=== PATIENT | male | born 1975 | race Caucasian/White ===

== ENCOUNTER 2018-07-09 11:40 | Day surgery (SDC) | payer BC ==
[~2018-07-09 11:40] MED LIST: Lactated Ringers 1,000 ML IV SCH
--- NOTE | 2018-07-09 12:33 | PCM.PREANE ---
Preanesthetic Assessment - Anesthesia/Transfusion/Family Hx Anesthesia History: No Prior Anesthesia Family History of Anesthesia Reaction: No Transfusion History: No Prior Transfusion(s) - Review of Systems General: No Symptoms Pulmonary: No Symptoms Cardiovascular: No Symptoms Neurological: No Symptoms Other: Reports: None - Physical Assessment NPO Status Date: 07/08/18 O2 Sat by Pulse Oximetry: 96 Respiratory Rate: 16 Vital Signs: Last Vital Signs Temp 97.0 F 07/09/18 11:58 Pulse 82 07/09/18 11:58 Resp 16 07/09/18 11:58 BP 146/90 H 07/09/18 11:58 Pulse Ox 96 07/09/18 11:58 Height: 5 ft 10 in Weight: 96.615 kg ASA Class: 2 Mental Status: Alert & Oriented x3 Airway Class: Mallampati = 2 Dentition: Reports: Normal Dentition ROM/Head Extension: Full Lungs: Clear to Auscultation, Normal Respiratory Effort Cardiovascular: Regular Rate, Regular Rhythm - Allergies Allergies/Adverse Reactions: Allergies Allergy/AdvReac Type Severity Reaction Status Date / Time No Known Allergies Allergy Verified 07/07/18 12:20 - Blood Blood Available: No - Anesthesia Plan Pre-Op Medication Ordered: None - Acknowledgements Anesthesia Type Planned: MAC Pt an Appropriate Candidate for the Planned Anesthesia: Yes Alternatives and Risks of Anesthesia Discussed w Pt/Guardian: Yes Pt/Guardian Understands and Agrees with Anesthesia Plan: Yes Additional Comments: PMH: htn, gerd, HLD PLAN: mac/tiva PreAnesthesia Questionnaire HEENT History: Reports: Other (See Below) Other HEENT History: wears glasses/contacts Cardiovascular History: Reports: High Cholesterol, Hypertension Other Cardiovascular History: Patient is not on medications, he is being monitored. Gastrointestinal History: Reports: GERD Neurological History: Reports: Other (See Below) Other Neuro History: hx of [place] Palsy - SUBSTANCE USE Smoking Status *Q: Former Smoker Tobacco Use Within Last Twelve Months: No Recreational Drug Use History: No - HOME MEDS Home Medications: Home Meds Pantoprazole [ProTONIX] 40 mg PO QAM 01/01/16 [History] Lisinopril 20 mg PO DAILY 07/07/18 [History] Rosuvastatin Calcium 10 mg PO DAILY 07/07/18 [History] - CURRENT (IN HOUSE) MEDS Current Meds: Current Medications Lactated Ringer's (Ringers, Lactated) 1,000 mls @ 125 mls/hr IV ASDIRECTED [facility] Last Admin: 07/09/18 12:03 Dose: 125 mls/hr
[2018-07-09] MEDS ORDERED: Propofol 200 MG/20 ML SDV ONE (13:50)
[2018-07-09] MEDS ORDERED: fentaNYL 100 MCG/2 ML SDV ONE (13:50)
[2018-07-09] MEDS ORDERED: Midazolam 1 MG/ML 2 ML SDV ONE (14:01)
--- NOTE | 2018-07-09 14:24 | PCM.OPNOTE ---
- General Post-Op/Procedure Note Date of Surgery/Procedure: 07/09/18 Operative Procedure(s): Esophagogastroduodenoscopy with biopsy Pre Op Diagnosis: Abdominal bloating. Weight loss. Early satiety. Post-Op Diagnosis: Mild gastritis. Hiatal hernia with erosive distal esophagitis. Anesthesia Technique: MAC (ASA II) Primary Surgeon: Eric Price Condition: Good Free Text/Narrative:: DICTATION [id number] CPT CODE 25270
[2018-07-09] MEDS ORDERED: Lactated Ringers 1,000 ML IV SCH (14:30)
--- NOTE | 2018-07-09 14:40 | PCM.POSTAN ---
POST ANESTHESIA ASSESSMENT - MENTAL STATUS Mental Status: Alert, Oriented - RESPIRATORY Respiratory Status: Respiratory Rate WNL, Airway Patent, O2 Saturation Stable - CARDIOVASCULAR CV Status: Pulse Rate WNL, Blood Pressure Stable - GASTROINTESTINAL GI Status: No Symptoms - POST OP HYDRATION Hydration Status: Adequate & Stable - OBSERVATIONS Free Text/Narrative:: The patient tolerated the procedure well. There were no apparent anesthetic complications at this time. Discharge per criteria.
[2018-07-09 14:55] VITALS: BP 115/79
--- NOTE | 2018-07-09 15:16 | PCM48HPAN ---
Post Anesthesia Note - EVALUATION WITHIN 48HRS OF ANESTHETIC Vital Signs in Normal Range: Yes Patient Participated in Evaluation: Yes Respiratory Function Stable: Yes Airway Patent: Yes Cardiovascular Function Stable: Yes Hydration Status Stable: Yes Pain Control Satisfactory: Yes Nausea and Vomiting Control Satisfactory: Yes Mental Status Recovered: Yes Resp Rate: 14
--- NOTE | 2018-07-09 15:31 | OR ---
SURGEON: Eric Price M.D. DATE OF PROCEDURE: 07/09/2018 OPERATION PERFORMED: Esophagogastroduodenoscopy with biopsy. PRIMARY SURGEON: Eric Price MD. ANESTHESIA: MAC. [place] [employer] CLASSIFICATION: II. PREOPERATIVE DIAGNOSES: 1. Longstanding gastroesophageal reflux disease with heartburn. 2. Early satiety. 3. Unexplained weight loss. POSTOPERATIVE DIAGNOSES: 1. Gastritis. 2. Hiatal hernia with acute esophagitis. DESCRIPTION OF PROCEDURE: The patient was taken to the endoscopy room and positioned on the endoscopy table in the left lateral decubitus position. Time-out was called for appropriate identification of the patient and procedure. Monitored anesthesia care was provided. A bite-block was placed between the patient's teeth. The gastroscope was inserted through the bite-block and advanced without difficulty through the esophagus and stomach into the duodenum, where examination was carried out in a retrograde fashion. The duodenum shows no acute inflammatory changes or ulcerations. Stomach does show mild chronic gastritis. No acute ulcerations or erosions were noted. The gastroscope was retroflexed to visualize the proximal stomach. The patient does have a hiatal hernia that can be seen from below, but more easily seen from above. He does have significant reflux symptoms and did show erosive esophagitis. With narrow-band imaging, I did not see any changes suggestive of a Sahni esophagus. The proximal and mid esophagus showed no acute lesions. No erosions were noted. The vocal cords were briefly visualized as the scope was withdrawn. There are noted to move symmetrically. The gastroscope was then removed with the patient having tolerated the procedure well. He was then taken to the recovery room in stable condition. HIRA / MANUEL /[id number]
== END 2018-07-09 15:20 | disposition home or self-care (01) ==
LOC: MW.SDS 11:40
PROVIDERS: ATTEND Surgery
DX: K29.50 Unspecified chronic gastritis without bleeding (principal); K22.10 Ulcer of esophagus without bleeding; K44.9 Diaphragmatic hernia without obstruction or gangrene; K21.9 Gastro-esophageal reflux disease without esophagitis; I10 Essential (primary) hypertension; E78.5 Hyperlipidemia, unspecified; R63.4 Abnormal weight loss; Z68.30 Body mass index [BMI] 30.0-30.9, adult; Z87.891 Personal history of nicotine dependence; Z79.899 Other long term (current) drug therapy
CPT/HCPCS: 43239; J2704; J3010; J7120; J2001

== ENCOUNTER 2019-06-27 19:05 | Observation (INO) | payer BC ==
[2019-06-27] MEDS ORDERED: Aspirin 81 MG Tab.Chew PO ONE (19:21)
[2019-06-27] MEDS ORDERED: Sodium Chloride 0.9% 1,000 ML IV ONE ×2 (19:21→20:38)
[2019-06-27] MEDS ORDERED: Sodium Chloride 0.9% 10 ML Syringe FLUSH PRN (19:21)
[2019-06-27] MEDS ORDERED: Sodium Chloride 0.9% 2.5 ML Syringe FLUSH PRN (19:21)
--- NOTE | 2019-06-27 19:22 | EDM.PDOC ---
ED HPI GENERAL MEDICAL PROBLEM - General Chief Complaint: Chest Pain Stated Complaint: CHEST PAIN Time Seen by Provider: 06/27/19 19:14 - History of Present Illness INITIAL COMMENTS - FREE TEXT/NARRATIVE: HISTORY AND PHYSICAL: History of present illness: Patient is a 44-year-old male who follows with Dr. Reilly in our family practice clinic who has a history of pretension acid reflux and elevated cholesterol for which he takes medications and presents with complaints of mid chest diffuse chest pressure that started yesterday afternoon. He says that there was no sudden onset but it was gradually increasing and he had it when he went to sleep last night but he slept the whole night without issues. When he woke up this morning it was still present and as the day progressed it seemed to get worse. He says it is worse when he bends over but he is not short of breath he has no abdominal pain no nausea no leg pain or swelling and no diaphoresis. He did not take anything specifically for the discomfort. He describes it as a pressure and aching and it is diffuse over his lower sternum but does not localize right or left. He has no recent trauma and he does smoke cigarettes and socially drinks alcohol but he has no drug use. The patient does have a significant family history of a father who had stents at the age of 55 but this patient has never had any cardiac work-up or stress test. He tells me that it is not worse with walking or activity but more with bending over and certain movements. It does not radiate. He has never had this before and it is not similar to his acid reflux discomfort. He does not have any abdominal pain vomiting or diarrhea and no upper respiratory symptoms or flulike symptoms. The patient does admit that he does drink a lot of caffeinated products at rest he says he is feeling the pressure and discomfort and he rates it as a 5/10. The patient does work at a desk job all day Review of systems: As per history of present illness and below otherwise all systems reviewed and negative. Past medical history: As per history of present illness and as reviewed below otherwise noncontributory. Surgical history: As per history of present illness and as reviewed below otherwise noncontributory. Social history: No reported history of drug or alcohol abuse. Family history: As per history of present illness and as reviewed below otherwise noncontributory. Physical exam: General: Well-developed well-nourished overweight man who is nontoxic and moves easily in the ED. When I asked him to sit up for a lung exam he said that that made the discomfort worse. HEENT: Atraumatic, normocephalic, pupils reactive, negative for conjunctival pallor or scleral icterus, mucous membranes moist, throat clear, neck supple, nontender, trachea midline. Lungs: Clear to auscultation, breath sounds equal bilaterally, chest nontender. No wheezing stridor or work of breathing Heart: S1S2, regular, negative for clicks, rubs, or JVD. Abdomen: Soft, nondistended, nontender. Negative for masses or hepatosplenomegaly. Negative for costovertebral tenderness. Pelvis: Stable nontender. Genitourinary: Deferred. Rectal: Deferred. Extremities: Atraumatic, negative for cords or calf pain. Neurovascular unremarkable. No pedal edema or leg asymmetry Neuro: Awake, alert, oriented. Cranial nerves II through XII unremarkable. Cerebellum unremarkable. Motor and sensory unremarkable throughout. Exam nonfocal. Diagnostics: EKG chest x-ray CBC CMP INR troponin UA with reflex CTA of the chest Therapeutics: IV O2 monitor IV fluids aspirin sublingual nitro, NTP Toradol Ativan After 3 sublingual nitros the pain has not changed and is still a 5/10. The patient is somewhat anxious does have a history of anxiety so we will give him some Nitropaste Toradol and Ativan and continue with our work-up. Patient and family at bedside are aware of all results and are agreeable for observation admission. I discussed this case with Dr. Olivares who is in agreement. Impression: Chest pain Definitive disposition and diagnosis as appropriate pending reevaluation and review of above. Chest Pain Score (Numeric/FACES): 5 - Related Data Allergies Allergy/AdvReac Type Severity Reaction Status Date / Time No Known Allergies Allergy Verified 06/27/19 19:09 Home Meds: Home Meds Pantoprazole [ProTONIX] 40 mg PO QAM 01/01/16 [History] Lisinopril 20 mg PO DAILY 07/07/18 [History] Rosuvastatin Calcium 10 mg PO DAILY 07/07/18 [History] Sucralfate 1 gm PO QIDACANDBED 30 Days #120 ml 07/09/18 [Rx] Past Medical History HEENT History: Reports: Other (See Below) Other HEENT History: wears glasses/contacts Cardiovascular History: Reports: High Cholesterol, Hypertension Other Cardiovascular History: Patient is not on medications, he is being monitored. Gastrointestinal History: Reports: GERD Neurological History: Reports: Other (See Below) Other Neuro History: hx of [place] Palsy - Infectious Disease History Infectious Disease History: Reports: None Social & Family History - Family History Family Medical History: Noncontributory - Tobacco Use Smoking Status *Q: Current Every Day Smoker Years of Tobacco use: 10 Packs/Tins Daily: 1 - Recreational Drug Use Recreational Drug Use: No ED ROS GENERAL - Review of Systems Review Of Systems: Comprehensive ROS is negative, except as noted in HPI. ED EXAM, GENERAL - Physical Exam Exam: See Below (See dictation) Course - Vital Signs Last Recorded V/S: Last Vital Signs Temp 36.2 C 06/27/19 19:09 Pulse 82 06/27/19 20:43 Resp 14 06/27/19 20:43 BP 121/75 06/27/19 20:43 Pulse Ox 96 06/27/19 20:43 - Orders/Labs/Meds Orders: Active Orders 24 hr Category Date Time Status Patient Status [ADT] Stat ADT 06/27/19 22:33 Active Cardiac Monitoring [RC] . DIRECTED Care 06/27/19 19:20 Active EKG Documentation Completion [RC] STAT Care 06/27/19 19:20 Active Oxygen Therapy, ED [RC] ASDIRECTED Care 06/27/19 19:20 Active Pulse Oximetry [RC] ASDIRECTED Care 06/27/19 19:20 Active UA RFX SHARON AND CULT IF INDIC [URIN] Stat Lab 06/27/19 19:21 Ordered Sodium Chloride 0.9% [Saline Flush] Med 06/27/19 19:21 Active 10 ml FLUSH ASDIRECTED PRN Sodium Chloride 0.9% [Saline Flush] Med 06/27/19 19:21 Active 2.5 ml FLUSH ASDIRECTED PRN Saline Lock Insert [OM.PC] Stat Oth 06/27/19 19:20 Ordered Medication Orders Sodium Chloride (Saline Flush) 10 ml FLUSH ASDIRECTED PRN PRN Reason: Keep Vein Open Sodium Chloride (Saline Flush) 2.5 ml FLUSH ASDIRECTED PRN PRN Reason: Keep Vein Open Labs: Laboratory Tests 06/27/19 06/27/19 06/27/19 Range/Units 19:26 19:26 19:26 WBC 9.56 (4.0-11.0) K/uL RBC 4.63 (4.50-5.90) M/uL Hgb 14.4 (13.0-17.0) g/dL Hct 41.2 (38.0-50.0) % MCV 89.0 (80.0-98.0) fL MCH 31.1 (27.0-32.0) pg MCHC 35.0 (31.0-37.0) g/dL RDW Std Deviation 45.2 (28.0-62.0) fl RDW Coeff of Jose 14 (11.0-15.0) % Plt Count 230 (150-400) K/uL MPV 11.10 (7.40-12.00) fL Add Manual Diff YES Neutrophils % (Manual) 60 (48.0-80.0) % Lymphocytes % (Manual) 30 (16.0-40.0) % Monocytes % (Manual) 7 (0.0-15.0) % Eosinophils % (Manual) 3 (0.0-7.0) % Nucleated RBC % 0.0 /100WBC Absolute Seg Neuts 5.7 (1.4-5.7) Lymphocytes # (Manual) 2.9 H (0.6-2.4) Monocytes # (Manual) 0.7 (0.0-0.8) Eosinophils # (Manual) 0.3 (0.0-0.7) Nucleated RBCs # 0 K/uL INR 0.96 Sodium 141 (136-148) mmol/L Potassium 3.8 (3.5-5.1) mmol/L Chloride 104 (98-107) mmol/L Carbon Dioxide 27.0 (21.0-32.0) mmol/L BUN 16 (7.0-18.0) mg/dL Creatinine 1.0 (0.8-1.3) mg/dL Est Cr Clr Drug Dosing 98.35 mL/min Estimated GFR (MDRD) > 60.0 ml/min Glucose 109 H (74-106) mg/dL Calcium 8.9 (8.5-10.1) mg/dL Total Bilirubin 0.4 (0.2-1.0) mg/dL AST 37 (15-37) IU/L ALT 110 H (14-63) IU/L Alkaline Phosphatase 83 (46-116) U/L Troponin I < 0.050 (0.000-0.056) ng/mL Total Protein 7.7 (6.4-8.2) g/dL Albumin 4.0 (3.4-5.0) g/dL Globulin 3.7 (2.6-4.0) g/dL Albumin/Globulin Ratio 1.1 (0.9-1.6) Meds: Medications Generic Name Dose Route Start Last Admin Trade Name Freq PRN Reason Stop Dose Admin Sodium Chloride 10 ml 06/27/19 19:21 Saline Flush FLUSH ASDIRECTED PRN Keep Vein Open Sodium Chloride 2.5 ml 06/27/19 19:21 Saline Flush FLUSH ASDIRECTED PRN Keep Vein Open Discontinued Medications Generic Name Dose Route Start Last Admin Trade Name Freq PRN Reason Stop Dose Admin Aspirin 324 mg 06/27/19 19:21 06/27/19 19:36 Aspirin PO 06/27/19 19:22 324 mg ONETIME ONE Administration Sodium Chloride 1,000 mls @ 999 mls/hr 06/27/19 19:21 06/27/19 19:35 Normal Saline IV 06/27/19 20:21 999 mls/hr STAT ONE Administration Sodium Chloride 1,000 mls @ 999 mls/hr 06/27/19 20:38 06/27/19 20:39 Normal Saline IV 06/27/19 21:38 999 mls/hr .Bolus ONE Administration Iopamidol 100 ml 06/27/19 21:18 Isovue-370 (76%) IVPUSH 06/27/19 21:19 ONETIME STA Ketorolac Tromethamine 30 mg 06/27/19 19:53 06/27/19 19:58 Toradol IVPUSH 06/27/19 19:54 30 mg ONETIME ONE Administration Lorazepam 0.5 mg 06/27/19 19:53 06/27/19 19:58 Ativan IVPUSH 06/27/19 19:54 0.5 mg ONETIME ONE Administration Nitroglycerin 0.4 mg 06/27/19 19:21 06/27/19 19:46 Nitrostat SL 0.4 mg Q5M PRN Administration Chest Pain Nitroglycerin 1 gm 06/27/19 19:53 06/27/19 19:59 Nitro-Bid 2% TOP 06/27/19 19:54 1 gm ONETIME ONE Administration Departure - Departure Time of Disposition: 22:42 Disposition: Refer to Observation Condition: Good Clinical Impression: Chest pain Qualifiers: Chest pain type: unspecified Qualified Code(s): R07.9 - Chest pain, unspecified - Discharge Information Referrals: Maxwell Reilly MD [Primary Care Provider] - Forms: ED Department Discharge Sepsis Event Note - Evaluation Sepsis Screening Result: No Definite Risk - Focused Exam Vital Signs: Vital Signs Temp Pulse Resp BP BP Pulse Ox Pulse Ox 06/27/19 20:43 82 14 121/75 96 06/27/19 20:06 86 21 H 128/68 98 06/27/19 19:52 93 19 132/69 95 06/27/19 19:47 93 14 136/67 95 06/27/19 19:46 136/67 06/27/19 19:42 133/75 06/27/19 19:41 94 18 133/75 95 06/27/19 19:39 97 06/27/19 19:36 103 H 18 141/86 H 141/86 H 97 06/27/19 19:09 36.2 C 98 16 169/96 H 97 Date Exam was Performed: 06/27/19 Time Exam was Performed: 22:42 - My Orders Last 24 Hours: My Active Orders 06/27/19 19:20 Cardiac Monitoring [RC] . DIRECTED EKG Documentation Completion [RC] STAT Oxygen Therapy, ED [RC] ASDIRECTED Pulse Oximetry [RC] ASDIRECTED Saline Lock Insert [OM.PC] Stat 06/27/19 19:21 UA RFX SHARON AND CULT IF INDIC [URIN] Stat Sodium Chloride 0.9% [Saline Flush] 10 ml FLUSH ASDIRECTED PRN Sodium Chloride 0.9% [Saline Flush] 2.5 ml FLUSH ASDIRECTED PRN 06/27/19 22:33 Patient Status [ADT] Stat - Assessment/Plan Last 24 Hours: My Active Orders 06/27/19 19:20 Cardiac Monitoring [RC] . DIRECTED EKG Documentation Completion [RC] STAT Oxygen Therapy, ED [RC] ASDIRECTED Pulse Oximetry [RC] ASDIRECTED Saline Lock Insert [OM.PC] Stat 06/27/19 19:21 UA RFX SHARON AND CULT IF INDIC [URIN] Stat Sodium Chloride 0.9% [Saline Flush] 10 ml FLUSH ASDIRECTED PRN Sodium Chloride 0.9% [Saline Flush] 2.5 ml FLUSH ASDIRECTED PRN 06/27/19 22:33 Patient Status [ADT] Stat
[2019-06-27] MEDS: Nitroglycerin 0.4 MG Tab.SL SL PRN ×3 (19:36→19:46)
[2019-06-27] MEDS ORDERED: LORazepam 2 MG/ML SDV IVPUSH ONE (19:53)
[2019-06-27] MEDS ORDERED: Ketorolac 30 MG/ML SDV IVPUSH ONE (19:53)
[2019-06-27] MEDS ORDERED: Nitroglycerin 2% Oint 1 GM UD Packet TOP ONE (19:53)
--- NOTE | 2019-06-27 20:02 | CR ---
Chest: Frontal view of the chest is obtained in AP projection. Comparison: Prior chest x-ray of 10/31/13. Findings: Heart size and mediastinum are normal. Several nodular densities are seen within the chest. One nodule within the left base appears is an interval change. This nodule is fairly dense and most likely represents a granuloma. Other nodules are felt to be stable and likely represent granulomas. No acute parenchymal change is otherwise seen. Heart size and mediastinum are normal. Bony structures are grossly intact. Impression: 1. Findings which are felt compatible with granulomas as described above. 2. Nothing acute is appreciated on AP chest x-ray. Diagnostic code #2 Study was dictated in [place] Standard Time
[2019-06-27 20:15] LABS: BLOOD UREA NITROGEN,BUN 16 mg/dL (7.0-18.0); CHLORIDE,CL 104 mmol/L (98-107); GLUCOSE RANDOM 109 mg/dL (74-106); POTASSIUM,K 3.8 mmol/L (3.5-5.1); SODIUM,NA 141 mmol/L (136-148)
[2019-06-27] MEDS ORDERED: Iopamidol 755 Mg/ML 100 ML Bottle IVPUSH STA (21:18)
--- NOTE | 2019-06-27 21:54 | CT ---
TECHNIQUE: IV contrast-enhanced CT chest, pulmonary embolism protocol. 100 mL Isovue-370 injected. INDICATION: Chest pain. FINDINGS: No pulmonary emboli. Multiple benign calcified granulomas in both lungs. No focal consolidation or mass. No pleural or pericardial effusions. No thoracic lymphadenopathy by CT size criteria. Hepatic steatosis. IMPRESSION: 1. No acute findings including no pulmonary emboli. 2. Hepatic steatosis. Dictated by Hema Pérez MD @ 06/27/2019 9:53:44 PM Please note that all CT scans at this facility use dose modulation, iterative reconstruction, and/or weight-based dosing when appropriate to reduce radiation dose to as low as reasonably achievable. Dictated by: Hema Pérez MD @ 06/27/2019 21:53:56 (Electronically Signed)
--- NOTE | 2019-06-28 08:41 | PCM.HP.2 ---
H&P History of Present Illness - General Date of Service: 06/28/19 Admit Problem/Dx: Admission Diagnosis/Problem Admission Diagnosis/Problem Chest pain - History of Present Illness Initial Comments - Free Text/Narative: The patient is a 44 year old male with PMH of HTN, hyperlipidemia, GERD, and depression who presented to the ER with chest pain. Started Thursday afternoon, felt like pressure on the left side of his chest that was constant, non radiating. No associated fever/chills shortness of breath, diaphoresis , or nausea/vomiting. Then Thursday after work, developed sharp pains worse with moving. Denies lifting anything heavy. Has been taking his medications as prescribed. Is a smoker but a few cigarettes when out drinking with friends, pack of cigarettes can take 1-2 months to go through. Denies being more stressed /anxious recently. Has been battling depression, teenage daughter last year in car accident. Father had stents placed at 55, Uncle had CABG. In the ER, CBC, INR, CMP wnl. Troponin negative. UA negative. CXR showed granulomas, and CTA was negative. EKG showed NSR without ST changes. Given ASA and 3 does of nitro in the ER with little improvement. Nitropaste and Toradol given. Most relief with Ativan. PCP- Dr. Reilly Chest Pain Score (Numeric/FACES): 1 - Related Data Allergies/Adverse Reactions: Allergies Allergy/AdvReac Type Severity Reaction Status Date / Time No Known Allergies Allergy Verified 06/27/19 23:28 Home Medications: Home Meds Pantoprazole [ProTONIX] 40 mg PO QAM 01/01/16 [History] Lisinopril 20 mg PO BEDTIME 07/07/18 [History] Rosuvastatin Calcium 10 mg PO BEDTIME 07/07/18 [History] Sertraline HCl 100 mg PO DAILY 06/27/19 [History] Past Medical History HEENT History: Reports: Other (See Below) Other HEENT History: wears glasses/contacts Cardiovascular History: Reports: High Cholesterol, Hypertension Other Cardiovascular History: Patient is not on medications, he is being monitored. Gastrointestinal History: Reports: GERD Genitourinary History: Reports: None Musculoskeletal History: Reports: None Neurological History: Reports: Other (See Below) Other Neuro History: hx of [place] Palsy following dental work 4 years ago, resolved in 6 months Psychiatric History: Reports: Depression Endocrine/Metabolic History: Reports: None Hematologic History: Reports: None Immunologic History: Reports: None - Infectious Disease History Infectious Disease History: Reports: None Social & Family History - Family History Family Medical History: Noncontributory - Tobacco Use Smoking Status *Q: Current Some Day Smoker Years of Tobacco use: 25 Packs/Tins Daily: 1 Tobacco Use Comment: socially and not often Second Hand Smoke Exposure: No - Caffeine Use Caffeine Use: Reports: Coffee - Recreational Drug Use Recreational Drug Use: No H&P Review of Systems - Review of Systems: Review Of Systems: See Below General: Reports: No Symptoms HEENT: Reports: No Symptoms Pulmonary: Reports: No Symptoms Cardiovascular: Reports: Chest Pain. Denies: Edema Gastrointestinal: Reports: No Symptoms Genitourinary: Reports: No Symptoms Musculoskeletal: Reports: No Symptoms Skin: Reports: No Symptoms Psychiatric: Reports: No Symptoms Neurological: Reports: No Symptoms Hematologic/Lymphatic: Reports: No Symptoms Immunologic: Reports: No Symptoms Exam - Exam Exam: See Below - Vital Signs Vital Signs: Last Vital Signs Temp 97.5 F 06/28/19 03:47 Pulse 63 06/28/19 03:47 Resp 16 06/28/19 03:47 BP 113/58 L 06/28/19 03:47 Pulse Ox 96 06/28/19 03:47 Weight: 101.605 kg - Exam General: Alert, Oriented, Cooperative HEENT: Conjunctiva Clear, EOMI, Mucosa Moist & [place], Posterior Pharynx Clear, Pupils Equal, Pupils Reactive Lungs: Clear to Auscultation, Normal Respiratory Effort Cardiovascular: Regular Rate, Regular Rhythm GI/Abdominal Exam: Normal Bowel Sounds, Soft, Non-Tender, No Distention Extremities: No Pedal Edema Skin: Warm, Dry Neuro Extensive - Mental Status: Alert, Oriented x3 Psychiatric: Alert, Normal Affect, Normal Mood - Patient Data Lab Results Last 24 hrs: Laboratory Results - last 24 hr 06/27/19 06/27/19 06/27/19 Range/Units 19:26 19:26 19:26 WBC 9.56 (4.0-11.0) K/uL RBC 4.63 (4.50-5.90) M/uL Hgb 14.4 (13.0-17.0) g/dL Hct 41.2 (38.0-50.0) % MCV 89.0 (80.0-98.0) fL MCH 31.1 (27.0-32.0) pg MCHC 35.0 (31.0-37.0) g/dL RDW Std Deviation 45.2 (28.0-62.0) fl RDW Coeff of Jose 14 (11.0-15.0) % Plt Count 230 (150-400) K/uL MPV 11.10 (7.40-12.00) fL Add Manual Diff YES Neutrophils % (Manual) 60 (48.0-80.0) % Lymphocytes % (Manual) 30 (16.0-40.0) % Monocytes % (Manual) 7 (0.0-15.0) % Eosinophils % (Manual) 3 (0.0-7.0) % Nucleated RBC % 0.0 /100WBC Absolute Seg Neuts 5.7 (1.4-5.7) Lymphocytes # (Manual) 2.9 H (0.6-2.4) Monocytes # (Manual) 0.7 (0.0-0.8) Eosinophils # (Manual) 0.3 (0.0-0.7) Nucleated RBCs # 0 K/uL INR 0.96 Sodium 141 (136-148) mmol/L Potassium 3.8 (3.5-5.1) mmol/L Chloride 104 (98-107) mmol/L Carbon Dioxide 27.0 (21.0-32.0) mmol/L BUN 16 (7.0-18.0) mg/dL Creatinine 1.0 (0.8-1.3) mg/dL Est Cr Clr Drug Dosing 98.35 mL/min Estimated GFR (MDRD) > 60.0 ml/min Glucose 109 H (74-106) mg/dL Calcium 8.9 (8.5-10.1) mg/dL Total Bilirubin 0.4 (0.2-1.0) mg/dL AST 37 (15-37) IU/L ALT 110 H (14-63) IU/L Alkaline Phosphatase 83 (46-116) U/L Troponin I < 0.050 (0.000-0.056) ng/mL Total Protein 7.7 (6.4-8.2) g/dL Albumin 4.0 (3.4-5.0) g/dL Globulin 3.7 (2.6-4.0) g/dL Albumin/Globulin Ratio 1.1 (0.9-1.6) Urine Color Urine Appearance Urine pH (5.0-8.0) Ur Specific [place] (1.001-1.035) Urine Protein (NEGATIVE) mg/dL Urine Glucose (UA) (NEGATIVE) mg/dL Urine Ketones (NEGATIVE) mg/dL Urine Occult Blood (NEGATIVE) Urine Nitrite (NEGATIVE) Urine Bilirubin (NEGATIVE) Urine Urobilinogen (<2.0) EU/dL Ur Leukocyte Esterase (NEGATIVE) 06/27/19 06/28/19 06/28/19 Range/Units 23:55 01:34 07:24 WBC (4.0-11.0) K/uL RBC (4.50-5.90) M/uL Hgb (13.0-17.0) g/dL Hct (38.0-50.0) % MCV (80.0-98.0) fL MCH (27.0-32.0) pg MCHC (31.0-37.0) g/dL RDW Std Deviation (28.0-62.0) fl RDW Coeff of Jose (11.0-15.0) % Plt Count (150-400) K/uL MPV (7.40-12.00) fL Add Manual Diff Neutrophils % (Manual) (48.0-80.0) % Lymphocytes % (Manual) (16.0-40.0) % Monocytes % (Manual) (0.0-15.0) % Eosinophils % (Manual) (0.0-7.0) % Nucleated RBC % /100WBC Absolute Seg Neuts (1.4-5.7) Lymphocytes # (Manual) (0.6-2.4) Monocytes # (Manual) (0.0-0.8) Eosinophils # (Manual) (0.0-0.7) Nucleated RBCs # K/uL INR Sodium (136-148) mmol/L Potassium (3.5-5.1) mmol/L Chloride (98-107) mmol/L Carbon Dioxide (21.0-32.0) mmol/L BUN (7.0-18.0) mg/dL Creatinine (0.8-1.3) mg/dL Est Cr Clr Drug Dosing mL/min Estimated GFR (MDRD) ml/min Glucose (74-106) mg/dL Calcium (8.5-10.1) mg/dL Total Bilirubin (0.2-1.0) mg/dL AST (15-37) IU/L ALT (14-63) IU/L Alkaline Phosphatase (46-116) U/L Troponin I < 0.050 < 0.050 (0.000-0.056) ng/mL Total Protein (6.4-8.2) g/dL Albumin (3.4-5.0) g/dL Globulin (2.6-4.0) g/dL Albumin/Globulin Ratio (0.9-1.6) Urine Color YELLOW Urine Appearance CLEAR Urine pH 5.5 (5.0-8.0) Ur Specific [place] 1.020 (1.001-1.035) Urine Protein NEGATIVE (NEGATIVE) mg/dL Urine Glucose (UA) NEGATIVE (NEGATIVE) mg/dL Urine Ketones NEGATIVE (NEGATIVE) mg/dL Urine Occult Blood NEGATIVE (NEGATIVE) Urine Nitrite NEGATIVE (NEGATIVE) Urine Bilirubin NEGATIVE (NEGATIVE) Urine Urobilinogen 0.2 (<2.0) EU/dL Ur Leukocyte Esterase NEGATIVE (NEGATIVE) Result Diagrams: 06/27/19 19:26 06/27/19 19:26 Sepsis Event Note - Evaluation Sepsis Screening Result: No Definite Risk - Focused Exam Vital Signs: Vital Signs Temp Pulse Resp BP Pulse Ox 06/28/19 03:47 97.5 F 63 16 113/58 L 96 06/27/19 23:18 97 F 68 14 113/64 99 06/27/19 22:49 97.1 F 75 18 147/72 H 98 06/27/19 20:43 82 14 121/75 96 Date Exam was Performed: 06/28/19 Time Exam was Performed: 10:29 Problem List Initiated/Reviewed/Updated: Yes Orders Last 24hrs: Active Orders 24 hr Category Date Time Status Patient Status [ADT] Stat ADT 06/27/19 22:33 Active Cardiac Monitoring [RC] . DIRECTED Care 06/27/19 19:20 Active Telemetry Monitoring [Cardiac Monitoring] [RC] Q8H Care 06/27/19 22:47 Active Vital Signs [RC] Q4H Care 06/28/19 00:12 Active Regular Diet [DIET] Diet 06/28/19 Breakfast Active Pantoprazole [ProTONIX] Med 06/28/19 09:00 Active 40 mg PO QAM Rosuvastatin [Crestor] Med 06/28/19 21:00 Active 10 mg PO BEDTIME Sertraline [Zoloft] Med 06/28/19 09:00 Active 100 mg PO DAILY Sodium Chloride 0.9% [Saline Flush] Med 06/27/19 19:21 Active 10 ml FLUSH ASDIRECTED PRN Sodium Chloride 0.9% [Saline Flush] Med 06/27/19 19:21 Active 2.5 ml FLUSH ASDIRECTED PRN lisinopriL [Prinivil] Med 06/28/19 21:00 Active 20 mg PO BEDTIME Saline Lock Insert [OM.PC] Stat Oth 06/27/19 19:20 Ordered Medication Orders Lisinopril (Prinivil) 20 mg PO BEDTIME SAMEER Pantoprazole Sodium (Protonix) 40 mg PO QAM SAMEER Rosuvastatin Calcium (Crestor) 10 mg PO BEDTIME SAMEER Sertraline HCl (Zoloft) 100 mg PO DAILY SAMEER Sodium Chloride (Saline Flush) 10 ml FLUSH ASDIRECTED PRN PRN Reason: Keep Vein Open Sodium Chloride (Saline Flush) 2.5 ml FLUSH ASDIRECTED PRN PRN Reason: Keep Vein Open Assessment/Plan Comment:: 1. Admit for observation 2. Code status- Full 3. Vitals per routine 4. I/Os per routine 5. Diet- regular 6. DVT with SCDs 7. Chest pain- trend troponins, monitor on telemetry 8.PMH- HTN, Hyperlipidemia, depression, GERD- continue home meds Was observed overnight, troponins negative x 3, no significant events on telemetry, symptoms improvement. Patient will be discharged with follow up with PCP, Dr. Reilly, and outpatient stress test. Regular diet as tolerated, activity as tolerated, take medications as prescribed. Symptoms to report to physician include fever/chills, chest pain, shortness of breath, abdominal pain , erythema, drainage/discharge, or not improving as expected. Continue home meds. Patient understood and agreed to the plan.
[2019-06-28] MEDS ORDERED: Sertraline 50 MG Tab PO SCH (09:00)
[2019-06-28] MEDS ORDERED: Pantoprazole 40 MG Tab.CR PO SCH (09:00)
[2019-06-28 10:49] VITALS: BP 127/80; PULSE 76
[2019-06-28] MEDS ORDERED: Rosuvastatin 10 MG Tab PO SCH (21:00)
[2019-06-28] MEDS ORDERED: Lisinopril 10 MG Tab PO SCH (21:00)
== END 2019-06-28 10:55 | disposition home or self-care (01) ==
LOC: MW.ED 19:05 → MW.MS 22:33
PROVIDERS: ADMIT Internal Medicine; ATTEND Internal Medicine
DX: R07.9 Chest pain, unspecified (principal); I10 Essential (primary) hypertension; E78.5 Hyperlipidemia, unspecified; E78.00 Pure hypercholesterolemia, unspecified; K21.9 Gastro-esophageal reflux disease without esophagitis; F32.9 Major depressive disorder, single episode, unspecified; F17.210 Nicotine dependence, cigarettes, uncomplicated; Z79.899 Other long term (current) drug therapy
CPT/HCPCS: 36415; 71045; 71275; 80053; 81003; 84484; 85025; 85610; 93005; A9270; J1885; J2060; J7030; Q9967; 96361; 96374; 96375; 99285-25; G0378

== ENCOUNTER 2020-01-07 22:27 | Emergency (ER) | payer BC ==
[2020-01-07] MEDS ORDERED: diphenhydrAMINE 50 MG/ML SDV IVPUSH ONE (23:02)
[2020-01-07] MEDS ORDERED: Metoclopramide 10 MG/2 ML SDV IVPUSH ONE (23:02)
--- NOTE | 2020-01-07 23:21 | EDM.PDOC ---
ED HPI GENERAL MEDICAL PROBLEM - General Chief Complaint: Headache Stated Complaint: HEADACHE/VOMITING Time Seen by Provider: 01/07/20 22:51 - History of Present Illness INITIAL COMMENTS - FREE TEXT/NARRATIVE: 44-year-old male with no significant past history who is presenting with gradual onset bilateral frontal headache that started at 4 PM this evening got worse and worse and was associated with nausea then finally nonbloody nonbilious emesis. No vision changes no neck pain no other neurologic symptoms. Associated with photophobia no phonophobia no fevers no chills no facial pressure or nasal congestion. Patient has a history of headaches in the past but not typically this bad he is never had to present to the emergency department for 1 and he has not had imaging for them in the past. No fevers no chills. At its worst headache was 10 out of 10 and is now improved to 7 out of 10. Patient denies associated syncope or near syncope. Frontal Headache Pain Score (Numeric/FACES): 7 - Related Data Allergies Allergy/AdvReac Type Severity Reaction Status Date / Time No Known Allergies Allergy Verified 01/07/20 22:32 Home Meds: Home Meds Pantoprazole [ProTONIX] 40 mg PO QAM 01/01/16 [History] Lisinopril 20 mg PO BEDTIME 07/07/18 [History] Rosuvastatin Calcium 10 mg PO BEDTIME 07/07/18 [History] Sertraline HCl 100 mg PO DAILY 06/27/19 [History] Past Medical History HEENT History: Reports: Other (See Below) Other HEENT History: wears glasses/contacts Cardiovascular History: Reports: High Cholesterol, Hypertension Other Cardiovascular History: Patient is not on medications, he is being monitored. Gastrointestinal History: Reports: GERD Genitourinary History: Reports: None Musculoskeletal History: Reports: None Neurological History: Reports: Other (See Below) Other Neuro History: hx of [place] Palsy following dental work 4 years ago, resolved in 6 months Psychiatric History: Reports: Depression Endocrine/Metabolic History: Reports: None Hematologic History: Reports: None Immunologic History: Reports: None - Infectious Disease History Infectious Disease History: Reports: Chicken Pox Social & Family History - Family History Family Medical History: Noncontributory - Caffeine Use Caffeine Use: Reports: Coffee - Recreational Drug Use Recreational Drug Use: No ED ROS GENERAL - Review of Systems Review Of Systems: See Below Free Text/Narrative/Comment: General: No fever. Skin: No rash. Eyes: No vision problems. ENT: No sore throat. Neck: No neck stiffness. Respiratory: No shortness of breath. Cardiac: No chest pain. Gastrointestinal: No nausea, vomiting or abdominal pain. Urinary: No dysuria. Musculoskeletal: No myalgias/arthralgias. Neurologic: Per HPI ED EXAM, GENERAL - Physical Exam Exam: See Below Free Text/Narrative:: General Appearance: No acute distress, appears comfortable Skin: No rash HEENT: Normocephalic/atraumatic, sclera anicteric, mucous membranes moist Neck: Normal range of motion Chest and Lungs: Bilateral breath sounds, clear to auscultation Cardiovascular: Regular rate and rhythm, no murmur Abdomen: Soft, non-tender Back: Normal Musculoskeletal: No edema or tenderness Neurologic: Awake, alert, cranial nerves III through XI intact bilaterally strength 5 out of 5 in upper and lower extremities [id number] intact bilaterally negative [place] Psychiatric: Appropriate, cooperative Course - Vital Signs Last Recorded V/S: Last Vital Signs Temp 97.5 F 01/07/20 22:33 Pulse 66 01/08/20 00:13 Resp 14 01/08/20 00:13 BP 132/80 01/08/20 00:13 Pulse Ox 97 01/08/20 00:13 - Orders/Labs/Meds Orders: Active Orders 24 hr Category Date Time Status Head wo Cont [CT] Stat Exams 01/07/20 23:02 Taken Meds: Medications Discontinued Medications Generic Name Dose Route Start Last Admin Trade Name Marshalq PRN Reason Stop Dose Admin Diphenhydramine HCl 25 mg 01/07/20 23:02 01/07/20 23:12 Benadryl IVPUSH 01/07/20 23:03 25 mg ONETIME ONE Administration Metoclopramide HCl 10 mg 01/07/20 23:02 01/07/20 23:13 Reglan IVPUSH 01/07/20 23:03 10 mg ONETIME ONE Administration Departure - Departure Time of Disposition: 00:18 Disposition: Home, Self-Care 01 Clinical Impression: Headache - Discharge Information *PRESCRIPTION DRUG MONITORING PROGRAM REVIEWED*: Not Applicable *COPY OF PRESCRIPTION DRUG MONITORING REPORT IN PATIENT DA: Not Applicable Instructions: General Headache Without Cause, [id number] Referrals: Maxwell Reilly MD [Primary Care Provider] - 1 Week () Forms: ED Department Discharge Additional Instructions: Your CT scan today did not show any bleeding or abnormal masses inside your brain if you continue to feel well you do not need to follow-up with your primary care doctor. However if you continue to have trouble with mild headaches please see your primary care doctor. If you have another severe headache or any other new symptoms that concern you please see your doctor right away or return to the emergency room. The following information is given to patients seen in the emergency department who are being discharged to home. This information is to outline your options for follow-up care. We provide all patients seen in our emergency department with a follow-up referral. The need for follow-up, as well as the timing and circumstances, are variable depending upon the specifics of your emergency department visit. If you don't have a primary care physician on staff, we will provide you with a referral. We always advise you to contact your personal physician following an emergency department visit to inform them of the circumstance of the visit and for follow-up with them and/or the need for any referrals to a consulting specialist. The emergency department will also refer you to a specialist when appropriate. This referral assures that you have the opportunity for follow-up care with a specialist. All of these measure are taken in an effort to provide you with optimal care, which includes your follow-up. Under all circumstances we always encourage you to contact your private physician who remains a resource for coordinating your care. When calling for follow-up care, please make the office aware that this follow-up is from your recent emergency room visit. If for any reason you are refused follow-up, please contact the [facility] Emergency Department at and asked to speak to the emergency department charge nurse. Sepsis Event Note (ED) - Evaluation Sepsis Screening Result: No Definite Risk - Focused Exam Vital Signs: Vital Signs Temp Pulse Resp BP Pulse Ox 01/08/20 00:13 66 14 132/80 97 01/07/20 22:33 97.5 F 75 20 166/96 H 97 - My Orders Last 24 Hours: My Active Orders 01/07/20 23:02 Head wo Cont [CT] Stat - Assessment/Plan Last 24 Hours: My Active Orders 01/07/20 23:02 Head wo Cont [CT] Stat Assessment:: 44-year-old male presenting with headache associated with vomiting it was gradual in onset no neck pain characteristics of the headaches seem highly atypical for subarachnoid hemorrhage it was not thunderclap it is not worst headache of life given the history of headaches the lack of prior imaging and CT brain ordered but no clinical concern for subarachnoid hemorrhage at this point. Reglan Benadryl for symptoms if CT negative then will add Toradol and reassess. No signs of meningitis or encephalitis no risk factors for cranial clot or stroke Patient symptoms resolved with Reglan Benadryl. CT with no acute intracranial process some sinusitis but patient had no tenderness to percussion over the sinuses he has had symptoms only since today no indication for medication for the sinusitis at this point.
[2020-01-08 00:13] VITALS: BP 132/80; PULSE 66
--- NOTE | 2020-01-08 00:50 | CT ---
CT HEAD DATE: 01/07/2020 CLINICAL HISTORY: Patient with frontal headache and vomiting. TECHNIQUE: Standard CT scanning of the head was performed. COMPARISON: None. FINDINGS: There is no intracranial hemorrhage. The beckford matter-white matter differentiation is intact. The size of the ventricular system is normal for age. There is no mass effect or midline shift. The calvarium is unremarkable. The orbits are unremarkable. The paranasal sinuses demonstrate moderate ethmoid air cell mucosal thickening and a large mucous retention cyst in the right maxillary sinus. The mastoid air cells are unremarkable. The soft tissues are unremarkable. IMPRESSION: 1. No intracranial hemorrhage or territorial infarction. 2. Moderate paranasal mucosal sinus disease. Please note that all CT scans at this facility use dose modulation, iterative reconstruction, and/or weight-based dosing when appropriate to reduce radiation dose to as low as reasonably achievable. Dictated by: José Miguel Arora MD @ 01/08/2020 00:04:30 (Electronically Signed)
== END 2020-01-08 00:31 | disposition home or self-care (01) ==
LOC: MW.ED 22:27
DX: R51 Headache (principal); R11.2 Nausea with vomiting, unspecified; I10 Essential (primary) hypertension; E78.00 Pure hypercholesterolemia, unspecified; K21.9 Gastro-esophageal reflux disease without esophagitis; F32.9 Major depressive disorder, single episode, unspecified; Z79.899 Other long term (current) drug therapy
CPT/HCPCS: 70450; 96374; 96375; 99284; J1200; J2765; 99283